=== PATIENT | female | born 1945 | race Two or more races ===

== ENCOUNTER 2018-10-30 07:16 | Inpatient (IN) | payer OTHER ==
[~2018-10-30] VITALS: Ht 152.4 cm; Wt 66.0 kg
[2018-10-30 07:22] VITALS: Ht 152.4 cm; Wt 66.0 kg
--- NOTE | 2018-10-30 07:27 | NUR ---
PT HERMILO CO NEAR SYNCOPABLE EPISODE AT SCIENTOLOGY. PT STS THAT SHE HAS EXPERIENCED THIS BEFORE 3 YEARS AGO BUT SAT DOWN AND FELT BETTER. PT STS SHE DID NOT COME TO THE HOSPITAL FOR THAT EPISODE. TODAY PT STS THAT SHE WAS SITTING DOWN AND FELT LIKE SHE WAS GOING TO FAINT. UPON ASSESSMENT PERRLA. SKIN TEMP AND COLOR WNL. SPEECH CLEAR. PT A/O X4. VSS. PT STS SHE HAS BEEN EXPERIENCING HEADACHES AT THE LOWER BACK OF THE HEAD ON AND OFF FOR A FEW YEARS. PT STS THE HEADACHES MAKE IT DIFFICULT TO SLEEP. AWAITING MSE. COMFORT MEASURES IMPLEMENTED. CALL LIGHT W/IN REACH. WILL CONTINUE TO MONITOR.
[2018-10-30 08:21] LABS: BASOPHIL % 0.4 % (0-2); RED CELL DISTRIBUTION WIDTH 13.9 % (11.5-14.5)
[2018-10-30 08:22] LABS: PLATELET COUNT 503 x10^3mcL (130-400)
--- NOTE | 2018-10-30 08:30 | NUR ---
PT MEDICATED PER ORDER. PT VERBALIZED UNDERSTANDING OF MEDICATION. SEE EMAR FOR DETAILS. EMT AT BEDSIDE FOR EKG.
[2018-10-30 08:33] LABS: CALCIUM 8.9 mg/dL (8.5-10.1); CARBON DIOXIDE 26.7 mmol/L (21-32); CHLORIDE SERUM 106 mmol/L (98-107); CREATININE SERUM 0.7 mg/dL (0.6-1.0); GLUCOSE SERUM 111 mg/dL (74-106); POTASSIUM SERUM 4.4 mmol/L (3.5-5.1); SODIUM SERUM 141 mmol/L (136-145)
--- NOTE | 2018-10-30 08:37 | NUR ---
PT AMBULATED TO RESTROOM W/STEADY GAIT. NO S/S OF DISTRESS NOTED.
[2018-10-30 08:38] LABS: ALBUMIN 3.4 g/dL (3.4-5.0); ALKALINE PHOSPHATASE 70 U/L (46-116); ALT/SGPT 15 U/L (14-59); AMYLASE 97 U/L (25-115); AST/SGOT 14 U/L (15-37); BILIRUBIN TOTAL 0.41 mg/dL (0.20-1.00); CHOLESTEROL 147 mg/dL (<200); LIPASE 140 IU/L (73-393); MAGNESIUM 2.3 mg/dL (1.8-2.4); TOTAL PROTEIN, SERUM 7.1 g/dL (6.4-8.2)
[2018-10-30 08:42] LABS: HDL CHOLESTEROL 65 mg/dL (40-60)
--- NOTE | 2018-10-30 09:09 | NUR ---
PT SITTING ON GURNEY IN POSITION OF COMFORT. NO S/S OF DISTRESS. FRIENDS AT BEDSIDE. RESP E/U. CALL LIGHT W/IN REACH. WILL CONTINUE TO MONITOR.
[2018-10-30 09:16] LABS: UA SPECIFIC GRAVITY 1.025 (1.005-1.035); microscopic required? YES; urine erythrocyte NEGATIVE (NEGATIVE)
--- NOTE | 2018-10-30 09:29 | NUR ---
PT AMBULATED TO RESTROOM W/STEADY GAIT. NO S/S OF DISTRESS.
--- NOTE | 2018-10-30 10:22 | NUR ---
PT LAYING ON GURNEY IN POSITION OF COMFORT. NO S/S OF DISTRESS. RESP E/U. TALKING WITH FAMILY. FAMILY AT BEDSIDE. WILL CONTINUE TO MONITOR.
[2018-10-30 11:16] LABS: AMPHETAMINE QUAL UR NONE DETECTED (See below)
[2018-10-30] MEDS ORDERED: ASPIRIN ADULT L81 M5 PO (11:53)
[2018-10-30] MEDS ORDERED: NATURE'S BLEND500 MG (11:54)
--- NOTE | 2018-10-30 12:58 | NUR ---
PT LAYING ON VIKAS IN POSTION OF COMFORT. PT STS SHE IS VERY HUNGRY, INFORMED PT WE MUST GET DIET ORDERS BEFORE SHE CAN EAT. NO S/S OF DISTRESS. RESP E/U. WILL CONTINUE TO MONITOR.
--- NOTE | 2018-10-30 14:22 | NUR ---
MEDICATED ORDERED. PLEASE SEE EMR. PT AMBULATED TO RESTROOM W/STEADY GAIT. NO S/S OF DISTRESS NOTED.
--- NOTE | 2018-10-30 14:29 | NUR ---
PT LAYING ON GURNEY IN POSITION OF COMFORT. PT STS THAT SHE IS HAVING PAIN IN HER BACK. BROUGHT WARM BLANKET TO PUT ON AREA OF PAIN. COMFORT MEASURES IMPLEMENTED. CALL LIGHT W/IN REACH. WILL CONTINUE TO MONITOR.
[2018-10-30 14:47] LABS: IRON 43 ug/dL (50-170); TOTAL IRON BINDING CAPACITY 408 ug/dL (250-450)
[2018-10-30 14:52] LABS: RED BLOOD CELLS 3.53 M/mm3 (4.10-5.10)
--- NOTE | 2018-10-30 15:52 | NUR ---
PT LAYING ON GURNEY IN POSITION OF COMFORT. NO S/S OF DISTRESS. RESP E/U. PT STS SHE IS IN PAIN. NOTIFIED. WILL CONTINUE TO MONITOR.
--- NOTE | 2018-10-30 17:01 | NUR ---
REPORT GIVEN TO KAREN
--- NOTE | 2018-10-30 17:07 | NUR ---
MEDICATED FOR BACK SPASM PAIN WITH MORPHINE PRN ORDER
--- NOTE | 2018-10-30 17:10 | NUR ---
PT GIVEN FOOD TRAY
--- NOTE | 2018-10-30 17:20 | NUR ---
PT SET TO TELE UNIT ACCOMPANIED BY NURSE AND EMT. PT WAS STABLE ON TRANSPORT. INDIGO MIXER ATTACHED DURING TRANSPORT. NO S/S OF DISTRESS. RESP E/U. RN AT BEDSIDE TO ASSUME CARE OF PT.
[2018-10-30 17:29] VITALS: BP 155/63
--- NOTE | 2018-10-30 18:16 | NUR ---
RECEIVED FROM ER AWAKE, ALERT AND ORIENTED. IN NO ACUTE RESP. DISTRESS. LUNGS CTA. SATS 100% ON RA. PT CAME IN WITH C/O HEADACHE AND DIZZINESS, STATED SHE FELT LIKE SHE WAS GOING TO PASS OUT. NO C/O DIZZINESS AT THIS TIME. PT WAS MEDICATED IN ED FOR BACK PAIN AND SPASMS WITH FAIR RELIEF. DENIES PAIN AT THIS TIME. FAMILY AT BEDSIDE. ADMISSION ASSESMENT COMPLETED. PT ORIENTED TO ROOM AND CALL LIGHT WITHIN REACH. WILL CONTINUE W/PLAN OF CARE.
--- NOTE | 2018-10-30 18:48 | NUR ---
REMAINS IN NO DISTRESS. AWAKE AND ALERT. NO CHANGES IN VS. NO C/O DIZZINESS OR LIGHTHEADED. FAMILY AT BEDSIDE. CALL LIGHT WITHIN REACH. WILL BE ENDORSED TO INCOMING SHIFT.
--- NOTE | 2018-10-30 19:30 | NUR ---
PT IS ALERT AND ORIENTED X 4. PLEASANT AND COOPERATIVE. LUNGS CLEAR ON AUSCULTATIONS BILATERALLY. ROOM AIR. CXR-NORMAL. SKIN IS INTACT. HEPLOCK IN THE LEFT AC. PATENT AND INTACT. TELE-NSR. HAS OCCASIONAL BACK PAIN. DENIES ANY PAIN AT THIS TIME. NO C/O DIZZINESS AT THIS TIME. MADE COMFORTABLE IN BED. CALL LIGHT WIHTIN EASY REACH.
[2018-10-30 21:18] VITALS: BP 126/49
--- NOTE | 2018-10-30 22:48 | NUR ---
PT REQUEST FOR SLEEPING PILL. MEDICATED WITH AMBIEN 5 MG PO. WILL MONITOR.
--- NOTE | 2018-10-31 00:25 | NUR ---
PT C/O ANXIETY/ INABILITY TO SLEEP. MEDICATED WITH ATIVAN 1 MG PO. WILL MONITOR.
--- NOTE | 2018-10-31 04:50 | NUR ---
PT IS ABLE TO SLEEP GOOD, AFTER MEDICATED WITH AMBIEN AND ATIVAN. AMBULATORY. MADE COMFORTBALE IN BED CAND CALL LIGHT WITHIN EASY REACH,
[2018-10-31 06:00] VITALS: BP 153/87
[2018-10-31 06:48] LABS: T4(THYROXINE) 8.3 ug/dL (4.7-13.3)
[2018-10-31 06:55] LABS: RED CELL DISTRIBUTION WIDTH 13.6 % (11.5-14.5)
--- NOTE | 2018-10-31 07:30 | NUR ---
PT IS ALERT AND ORIENTED X 4. PLEASANT AND COOPERATIVE. NO C/O DIZZINESS. AMBULATORY. LUNGS CLEAR ON AUSCULTATIONS BILATERALLY. ROOM AIR. 02SAT 98%. HEPLOCK IN THE LEFT AC. PATENT AND INTACT. SKIN IS INTACT. MADE COMFORTABLE IN BED. CALL LIGHT WITHIN EASY REACH.
[2018-10-31 07:31] LABS: PLATELET COUNT 525 x10^3mcL (130-400)
--- NOTE | 2018-10-31 08:51 | NUR ---
PT C/O BACK OF THE HEAD PAIN AND BACK PAIN 04/14. MEDICATED WITH NORCO 1 TAB PO. WILL MONITOR.
[2018-10-31 10:01] LABS: ERYTHROCYTE SED RATE 39 mm/hr (0-30)
[2018-10-31 10:29] VITALS: BP 112/50
--- NOTE | 2018-10-31 11:25 | NUR ---
RECEIVED PT FROM SARITHA ROSARIO RN. PT SEEN SITTING ON THE BEDSIDE CHAIR, AAOX4. STATED THAT SHE HAS MILD PAIN ON THE BACK OF HER HEAD. ABLE TO FOLLOW COMMANDS. NO SOB NOTED. SINUS TACHYCARDIA ON THE MONITOR, HR AT 113 ON THE MONITOR. CALL LIGHT ON REACH. WILL CONT TO MONITOR
--- NOTE | 2018-10-31 11:28 | NUR ---
GAVE REPORT TO BRITTANEY LUONG WHO WILL RESUME CARE.
[2018-10-31 12:49] VITALS: BP 112/50
--- NOTE | 2018-10-31 13:49 | NUR ---
PT SEEN AMBULATING IN THE HALLWAYS W/ STEADY GAIT
[2018-10-31] MEDS ORDERED: FERROUS SULFATE65 M1 PO (13:52)
[2018-10-31] MEDS ORDERED: COLACE100 MG PO (13:52)
[2018-10-31] MEDS ORDERED: MOBIC15 MG PO (13:53)
--- NOTE | 2018-10-31 14:12 | NUR ---
DISCHARGE INSTRUCTIONS GIVEN TO PT INCLUDING MEDICAL FOLLOW-UP WITH PCP. PRESCRIPTION PROVIDED. HOME MEDICATIONS REVIEWED W/ THE PT. PT VERBALIZES UNDERSTANDING. HEPLOCK ON THE LAC REMOVED, CATHETER REMOVED, NO REDNESS/SWELLING/BLEEDING NOTED. 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
--- NOTE | 2018-10-31 14:20 | NUR ---
PT WALKED DOWN TO [facility] W/ [facility]. PT DISCHARGED HOME
[2018-11-04 12:35] LABS: RHEUMATOID ARTHRITIS FACTOR <10 IU/mL (0.0-13.9)
[2018-11-13 11:50] LABS: RAPID PLASMA REAGIN Non Reactive (Non Reactive)
== END 2018-10-31 14:20 | disposition home or self-care (01) | DRG 812 ==
LOC: ED 07:16 → DU 12:30
PROVIDERS: Emergency Medicine; ADMIT Internal Medicine
DX: D50.9 Iron deficiency anemia, unspecified (principal); R55 Syncope and collapse; Z68.28 Body mass index [BMI] 28.0-28.9, adult; Z79.82 Long term (current) use of aspirin; Z77.22 Contact with and (suspected) exposure to environmental tobacco smoke (acute) (chronic)
CPT/HCPCS: 82962; 83880; 86431; J2270; J7030; Q0092